=== PATIENT | female | born 1940 | race Caucasian/White ===

== ENCOUNTER 2018-05-29 09:23 | Inpatient (IN) ==
[2018-05-23 14:07] LABS: Basophils # (Auto) 0 K/mcL (0.0-0.3); Basophils % (Auto) 0.5 % (0.0-2.0); Eosinophils # (Auto) 0.2 K/mcL (0.0-0.7); Eosinophils % (Auto) 2.7 % (0.0-7.0); Granulocytes % (Auto) 69.2 % (38.0-78.0); Lymphocytes % (Auto) 16.2 % (15.5-49.0); Mean Cell Volume 86.6 fL (80.0-100.0); Mean Corpuscular HGB Conc 32.8 g/dL (31.0-36.0); Mean Corpuscular Hemoglobin 28.4 pg (26.0-34.0); Monocytes # (Auto) 0.7 K/mcL (0.1-0.9); Monocytes % (Auto) 11.4 % (1.0-12.0); Platelet Count 185 K/mcL (140-440); RBC 4.63 M/mcL (4.00-5.20); Red Cell Distribution Width 14.3 % (11.5-14.5)
[2018-05-23 14:14] LABS: Appearance,Urine HAZY; Bilirubin,Urine NEG (NEG); Color,Urine YELLOW; Glucose,Urine (UA) NEGATIVE (NEG); Leukocyte Esterase,Urine NEG /uL (NEG); Protein,Urine NEG (NEG); Specific Gravity,Urine 1.021 (1.000-1.035); Urine Blood NEG mg/dL (<0.03); Urobilinogen,Urine NEG (NEG)
[2018-05-23 14:15] LABS: Blood Urea Nitrogen 31 mg/dl (8-23)
[~2018-05-29 09:23] MED LIST: 0.9 % SODIUM CHLORIDE 9 ML, KETOROLAC 30 MG, ROPIVACAINE HCL/PF 49.5 ML, EPINEPHrine 0.... IJ SCH; ACETAMINOPHEN 500 MG TABLET PO SCH; CELECOXIB 200 MG CAPSULE PO SCH; PREGABALIN 75 MG CAPSULE PO SCH; ceFAZolin 1 GM VIAL IV SCH; oxyCODONE 10 MG TAB.ER.12H PO SCH
[2018-05-29] MEDS ORDERED: MIDAZOLAM 2 MG/2 ML VIAL IV ONE (10:40)
[2018-05-29] MEDS ORDERED: KETAMINE 100 MG/ML ML IV ONE (10:40)
[2018-05-29] MEDS ORDERED: PHENYLEPHRINE 10 MG/ML VIAL IV ONE (10:40)
[2018-05-29] MEDS ORDERED: LIDOCAINE HCL/PF 100 MG/5 ML SYRINGE IV ONE (10:40)
[2018-05-29] MEDS ORDERED: GLYCOPYRROLATE 0.2 MG/ML VIAL IV ONE (10:40)
[2018-05-29] MEDS ORDERED: ONDANSETRON 4 MG/2 ML VIAL IV ONE (10:40)
[2018-05-29] MEDS ORDERED: TRANEXAMIC ACID 1,000 MG/10 ML VIAL IV ONE (10:40)
[2018-05-29] MEDS ORDERED: PROPOFOL 200 MG/20 ML VIAL IV ONE (10:40)
[2018-05-29] MEDS ORDERED: GENTAMICIN SULFATE 800 MG/20 ML VIAL IR ONE (11:10)
--- NOTE | 2018-05-29 11:55 | XRay Report ---
CLINICAL INFORMATION: LEFT TOTAL HIP ARTHROPLASTY-POSTERIOR COMPARISON: None. FINDINGS: Intraoperative film shows right femoral stem template in anatomic alignment and the right acetabular prosthesis also in near-anatomic alignment No osseous abnormality IMPRESSION: Interpreted and Authenticated by: Familia Mejía 05/29/18
[2018-05-29] MEDS ORDERED: fentaNYL 100 MCG/2 ML VIAL IV PRN (12:02)
[2018-05-29] MEDS ORDERED: ONDANSETRON 4 MG/2 ML VIAL IV PRN ×2 (12:02→12:11)
[2018-05-29] MEDS ORDERED: IPRATROPIUM/ALBUTEROL 3 ML AMPUL.NEB NEB PRN (12:02)
[2018-05-29] MEDS ORDERED: MEPERIDINE 25 MG/ML SYRINGE IV PRN (12:02)
[2018-05-29] MEDS ORDERED: METHOCARBAMOL 1,000 MG/10 ML VIAL IV PRN (12:02)
[2018-05-29] MEDS ORDERED: ACETAMINOPHEN 325 MG TABLET PO PRN (12:11)
[2018-05-29] MEDS ORDERED: FLEETS ADULT ENEMA PR PRN (12:11)
[2018-05-29] MEDS ORDERED: BISACODYL 10 MG SUPP.RECT PR PRN (12:11)
[2018-05-29] MEDS ORDERED: BENZOCAINE/MENTHOL 1 LOZENGE PO PRN (12:11)
[2018-05-29] MEDS ORDERED: POLYETHYLENE GLYCOL 3350 17 GM PACKET PO PRN (12:11)
[2018-05-29] MEDS ORDERED: HYDROmorphone 2 MG/ML VIAL IV PRN (12:11)
[2018-05-29] MEDS ORDERED: MAGNESIUM HYDROXIDE 30 ML ORAL.SUSP PO PRN (12:11)
[2018-05-29] MEDS ORDERED: TRANEXAMIC ACID 1,000 MG/10 ML VIAL IV SCH (12:11)
[2018-05-29] MEDS ORDERED: KETOROLAC 15 MG/ML VIAL IV PRN (12:11)
--- NOTE | 2018-05-29 12:11 | Brief Operative Note ---
Date of procedure: 05/29/18 Pre-op diagnosis: left hip djd Post-op diagnosis: same Procedure: left total hip cemented Grafts/Implants: Yes Anesthesia: GETA Complications Description: 05/29/18 12:10 [email or web address] Surgeon: aRj Trujillo Enrollment Management Vice President: Luis Alberto Perez Estimated blood loss (cc): 50 Specimens Removed/Pathology: none sent Condition: stable Disposition: PACU
[2018-05-29] MEDS ORDERED: LACTATED RINGERS 1,000 ML IV SCH (12:15)
--- NOTE | 2018-05-29 12:28 | Operative Note ---
DATE OF OPERATION: 05/29/2018 PREOPERATIVE DIAGNOSIS: Left hip degenerative arthritis. POSTOPERATIVE DIAGNOSIS: Left hip degenerative arthritis. PROCEDURE: Left total hip arthroplasty. SURGEON: Raj Trujillo MD DISTRIBUTION TRANSFORMER ASSEMBLER: Luis Alberto Perez PA-C. ANESTHESIA: General LMA anesthesia. COMPLICATIONS: None. ESTIMATED BLOOD LOSS: About 100 mL DESCRIPTION OF PROCEDURE: The patient was brought to the operating room. A timeout was performed, we confirmed the operative site and a superior approach was performed. We made an incision superiorly and dissected to the fascial layer. This was incised to the IT band insertion. Once this was done, we then dislocated the hip and released the superior capsule. We made our neck cut at 32 mm. Once done, we then subluxed the hip anteriorly, reamed up to a size 52 cup, implanted a 52 cup with a 35 mm screw. A non-hooded liner was placed. The cup was placed at 40 degrees of inclination and 20 degrees of anteversion. Once done, we then prepared the femur. This was broached up to the size 5. An x-ray was taken intraoperatively that showed fairly equal leg lengths, with the cup well-positioned. At this point, we cemented into place a size 5 stem with 15 degrees of anteversion. Once done, we then trialed the 2.5 and 5 head. The 5 was the most stable. We irrigated thoroughly so any debris was removed. We then closed the fascial layer with #1 Stratafix and #1 Stratafix was used through for the fatty layer and then adhesive closure. Sterile bandage was applied. The patient tolerated this well without complication. RBH:[email or web address] Job ID: [id number] Doc ID: [id number] Raj Trujillo MD
--- NOTE | 2018-05-29 13:05 | XRay Report ---
CLINICAL INFORMATION: Post-Op Total Hip COMPARISON: None. FINDINGS: Left total hip prostheses is in near-anatomic alignment. There is moderate degenerative change in both SI and right hip joint as previously seen. Soft tissue swelling over the surgical site seen as expected IMPRESSION: Left total hip prosthesis in near-anatomic alignment. Interpreted and Authenticated by: Familia Mejía 05/29/18
[2018-05-29] MEDS: 0.45 % SODIUM CHLORIDE 1,000 ML IV SCH (13:20)
[2018-05-29] MEDS: 0.9 % SODIUM CHLORIDE 10 ML SYRINGE IV SCH ×2 (15:09→22:34)
[2018-05-29] MEDS: HYDROcodone/APAP 10/325MG TABLET PO PRN (17:54)
[2018-05-29] MEDS: ceFAZolin 1 GM VIAL IV SCH (17:55)
[2018-05-29] MEDS ORDERED: TEMAZEPAM 15 MG CAPSULE PO PRN (21:00)
[2018-05-29] MEDS: SIMVASTATIN 10 MG TABLET PO SCH (21:35)
[2018-05-29] MEDS: SENNOSIDES 1 TABLET PO SCH (21:35)
[2018-05-29] MEDS: ASPIRIN 325 MG ENTERIC COATED TABLET PO SCH (21:35)
[2018-05-29] MEDS: DOCUSATE SODIUM 100 MG CAPSULE PO SCH (21:35)
[2018-05-29] MEDS: LATANOPROST OPHTH DROPS 2.5ML BOTTLE OU SCH (21:38)
[2018-05-30] MEDS: 0.45 % SODIUM CHLORIDE 1,000 ML IV SCH ×3 (00:09→21:26)
[2018-05-30] MEDS: ceFAZolin 1 GM VIAL IV SCH (02:52)
[2018-05-30] MEDS: 0.9 % SODIUM CHLORIDE 10 ML SYRINGE IV SCH ×2 (05:52→14:33)
[2018-05-30] MEDS: HYDROcodone/APAP 10/325MG TABLET PO PRN ×4 (06:58→21:28)
--- NOTE | 2018-05-30 07:42 | Orthopedic Progress Note ---
Subjective Patient information: Note initiated : 05/30/18 at 7:41 am Service Date, if different from initiated Date: [] Patient: Gwyn Thompson 78 y/o F admitted on 05/29/18 for Left Total Hip Arthroplasty. Chief Complaint: [Pt is stable this morning on post operative day 1 without any significant concerns or complaints. Patients vital signs have remained stable. Patients dressing is dry and is grossly intact from a neurovascular and motor standpoint. Patients 10 point ROS is otherwise negative. ] Objective Vital signs: Vital Signs Temp Pulse Resp BP Pulse Ox 05/30/18 06:49 97.2 F 77 16 120/58 94 05/30/18 05:00 92 05/30/18 03:54 97.7 F 84 18 109/67 96 05/30/18 03:00 90 05/30/18 01:00 20 90 05/29/18 23:48 97.6 F 75 18 99/60 93 05/29/18 23:00 92 05/29/18 21:00 90 05/29/18 20:00 97.8 F 78 20 105/67 95 05/29/18 19:00 95 05/29/18 17:00 96 05/29/18 16:11 78 05/29/18 15:00 96 05/29/18 14:51 113/75 94 05/29/18 14:21 102/67 94 05/29/18 13:51 113/76 96 05/29/18 13:36 122/78 94 05/29/18 13:21 113/63 94 05/29/18 13:17 83 05/29/18 13:06 113/75 95 05/29/18 13:05 96 05/29/18 13:00 98.1 F 85 16 115/60 98 05/29/18 12:56 98 F 81 17 110/54 99 05/29/18 12:46 98 F 81 17 110/54 99 05/29/18 12:36 98.1 F 85 13 105/61 98 05/29/18 12:31 97.9 F 22 109/66 99 05/29/18 12:26 98 F 82 12 102/48 99 05/29/18 12:21 98.7 F 80 12 110/50 99 05/29/18 12:16 98.4 F 94 H 14 122/58 97 05/29/18 09:43 97.7 F 20 128/76 96 05/29/18 09:23 97.7 F 20 128/76 96 Intake and Output 05/29/18 05/30/18 05/30/18 21:59 05:59 13:59 Intake Total 840 / 840 1425 / 1425 Output Total 200 / 200 250 / 250 Balance 840 / 840 1225 / 1225 -250 / -250 Intake: IV 1000 / 1000 Sodium Chloride 0.45% 1,000 ml 1000 / 1000 @ 100 mls/hr IV .Q10H JOANNE Rx#: [id number] Oral 840 / 840 425 / 425 Output: Void Amount 200 / 200 250 / 250 Other: Meal Dinner Percent of Meal Consumed 75% Feeding Ability Independent Urine Appearance Clear Clear Urine Color Dark Velma Bright Yellow Urine Odor Strong # Voids 1 Weight 207 lb Intake & Output: Intake & Output 05/29/18 05/30/18 05/30/18 21:59 05:59 13:59 Intake Total 840 / 840 1425 / 1425 Output Total 200 / 200 250 / 250 Balance 840 / 840 1225 / 1225 -250 / -250 Weight 207 lb Intake: IV 1000 / 1000 Sodium Chloride 0.45% 1,000 ml 1000 / 1000 @ 100 mls/hr IV .Q10H JOANNE Rx#: [id number] Oral 840 / 840 425 / 425 Output: Void Amount 200 / 200 250 / 250 Other: Meal Dinner Percent of Meal Consumed 75% Feeding Ability Independent Urine Appearance Clear Clear Urine Color Dark Velma Bright Yellow Urine Odor Strong # Voids 1 Incision: Yes healing Incision clean and dry: Yes Dressing: Yes clean Weight bearing status: full Neurological exam IM: Yes motor sensory intact, Yes neurovascular intact Extremities exam IM: Yes Foot pink and warm, Yes neurovascular intact - Labs CBC & BMP: 05/30/18 05:03 05/23/18 11:57 Labs: Orthopedic Labs 05/23/18 11:57 PT 13.3 INR 1.0 APTT 35 05/30/18 05/23/18 05:03 11:58 Hgb 13.1 Hct 33.7 L 40.1 Assessment and Plan (1) Hx of total hip arthroplasty The patient has been educated regarding dressing care, Physical Therapy recommendations, home exercises, restrictions, and follow up appointments. The patient has had all necessary DME prescribed. The patient has remained relatively stable during their hospital course. Leave Dermabond patch intact until followup Status: Acute
--- NOTE | 2018-05-30 07:44 | Discharge Summary ---
Ortho Discharge - [facility] - Patient Instructions Diet: Regular Diet Activity: activity as tolerated, weight bearing as tolerated Total Hip Protocol: Follow activity instructions as provided by Physical Therapy. Dressing Care: May shower in 2 days - Problem Maintenance (1) Hx of total hip arthroplasty Status: Acute - Follow Up Plan Follow Up Appointments: Luis Alberto Perez PA-C [Physician Box Toe Flanger [employer]] - 06/13/18 9:30 am Disposition: Xfer SNF Prognosis: Good Rehab Potential: Good I certify that the patient requires SNF services: No Overall status at discharge: patient is progressing back to baseline - Orders For Discharge Prescriptions: Aspirin [Ecotrin] 325 mg PO BID #60 tab.ec Docusate Sodium [Colace] 100 mg PO BID #60 cap HYDROcodone/APAP 10/325MG [[place] 10-325Mg] 1 - 2 tab PO Q4HP PRN #75 tab PRN Reason: Pain Level 3-6
[2018-05-30] MEDS: ASPIRIN 325 MG ENTERIC COATED TABLET PO SCH ×2 (08:57→21:07)
[2018-05-30] MEDS: DOCUSATE SODIUM 100 MG CAPSULE PO SCH ×2 (08:58→21:06)
[2018-05-30] MEDS: HYDROCHLOROTHIAZIDE 25 MG TABLET PO SCH (09:01)
[2018-05-30] MEDS: LISINOPRIL 20 MG TABLET PO SCH (09:01)
[2018-05-30] MEDS: SENNOSIDES 1 TABLET PO SCH (21:06)
[2018-05-30] MEDS: SIMVASTATIN 10 MG TABLET PO SCH (21:06)
[2018-05-30] MEDS: LATANOPROST OPHTH DROPS 2.5ML BOTTLE OU SCH (21:27)
[2018-05-31] MEDS: 0.9 % SODIUM CHLORIDE 10 ML SYRINGE IV SCH ×4 (03:44→20:18)
[2018-05-31] MEDS: 0.45 % SODIUM CHLORIDE 1,000 ML IV SCH ×2 (04:33→14:15)
[2018-05-31] MEDS: DOCUSATE SODIUM 100 MG CAPSULE PO SCH ×2 (07:17→20:17)
[2018-05-31] MEDS: LISINOPRIL 20 MG TABLET PO SCH (07:18)
[2018-05-31] MEDS: ASPIRIN 325 MG ENTERIC COATED TABLET PO SCH ×2 (07:18→20:17)
[2018-05-31] MEDS: HYDROcodone/APAP 10/325MG TABLET PO PRN (07:18)
[2018-05-31] MEDS: HYDROCHLOROTHIAZIDE 25 MG TABLET PO SCH (07:18)
--- NOTE | 2018-05-31 18:06 | Orthopedic Progress Note ---
Subjective Patient information: Note initiated : 05/31/18 at 6:05 pm Service Date, if different from initiated Date: [] Patient: Gwyn Thompson 78 y/o F admitted on 05/29/18 for Left Total Hip Arthroplasty. Chief Complaint: [less pain and walking 100 feet and no nausea or vomiting] Objective Vital signs: Vital Signs Temp Pulse Resp BP Pulse Ox 05/31/18 17:00 93 05/31/18 16:19 99.1 F H 20 96/55 90 05/31/18 15:00 93 05/31/18 13:00 96 05/31/18 12:00 98.4 F 20 94/62 91 05/31/18 11:00 98 05/31/18 09:00 97 05/31/18 07:35 98.4 F 20 115/61 92 05/31/18 04:33 92 05/31/18 03:18 98.2 F 80 18 124/76 92 05/31/18 00:27 98.3 F 75 16 106/68 93 05/31/18 00:23 90 05/30/18 21:03 90 05/30/18 19:00 90 Intake and Output 05/31/18 05/31/18 05/31/18 05:59 13:59 21:59 Intake Total 130 / 130 400 / 400 Output Total 150 / 150 200 / 200 1450 / 1450 Balance -150 / -150 -70 / -70 -1050 / -1050 Intake: Oral 130 / 130 400 / 400 Output: Void Amount 150 / 150 200 / 200 1450 / 1450 # of times incontinent of urine 0 / 0 Other: Meal Breakfast Lunch Percent of Meal Consumed 100% 100% Feeding Ability Independent Urine Appearance Clear Clear Urine Color Straw Bright Yellow Urine Odor Normal Normal Stool Size Moderate Stool Color Brown # Voids 1 1 # Bowel Movements 2 Intake & Output: Intake & Output 05/31/18 05/31/18 05/31/18 05:59 13:59 21:59 Intake Total 130 / 130 400 / 400 Output Total 150 / 150 200 / 200 1450 / 1450 Balance -150 / -150 -70 / -70 -1050 / -1050 Intake: Oral 130 / 130 400 / 400 Output: Void Amount 150 / 150 200 / 200 1450 / 1450 # of times incontinent of urine 0 / 0 Other: Meal Breakfast Lunch Percent of Meal Consumed 100% 100% Feeding Ability Independent Urine Appearance Clear Clear Urine Color Straw Bright Yellow Urine Odor Normal Normal Stool Size Moderate Stool Color Brown # Voids 1 1 # Bowel Movements 2 Incision: Yes healing Incision clean and dry: Yes Dressing: Yes clean Weight bearing status: full Neurological exam IM: Yes alert, Yes oriented X3, Yes neurovascular intact - Periperhal Pulses Peripheral pulses: 1+: dorsalis pedis (L), dorsalis pedis (R), posterior tibialis (L), posterior tibialis (R) - Labs CBC & BMP: 05/30/18 05:03 05/23/18 11:57 Labs: Orthopedic Labs 05/23/18 11:57 PT 13.3 INR 1.0 APTT 35 05/30/18 05/23/18 05:03 11:58 Hgb 13.1 Hct 33.7 L 40.1
--- NOTE | 2018-05-31 18:08 | Discharge Summary ---
Ortho Discharge - [facility] - Patient Instructions Diet: Regular Diet (discharge june 01 2018 to snf) Activity: activity as tolerated, weight bearing as tolerated Total Hip Protocol: Follow activity instructions as provided by Physical Therapy. Patient Education: Hydrocodone/Acetaminophen (By mouth), Aspirin (By mouth), Laxative, Stool Softeners (By mouth), Total Hip Replacement (DC) - Follow Up Plan Follow Up Appointments: Luis Alberto Perez PA-C [Physician Thread Cutter Tender] - 06/13/18 9:30 am Disposition: Xfer SNF Prognosis: Good Rehab Potential: Good I certify that the patient requires SNF services: No - Orders For Discharge Prescriptions: Aspirin [Ecotrin] 325 mg PO BID #60 tab.ec Docusate Sodium [Colace] 100 mg PO BID #60 cap HYDROcodone/APAP 10/325MG [[place] 10-325Mg] 1 - 2 tab PO Q4HP PRN #75 tab PRN Reason: Pain Level 3-6 Additional Discharge Orders: Physical Therapy at Discharge - [facility] Location: None Selected Toilet Riser Discharge Order Location: None Selected Walker Location: None Selected
[2018-05-31] MEDS: SENNOSIDES 1 TABLET PO SCH (20:17)
[2018-05-31] MEDS: SIMVASTATIN 10 MG TABLET PO SCH (20:18)
[2018-05-31] MEDS: LATANOPROST OPHTH DROPS 2.5ML BOTTLE OU SCH (20:18)
[2018-06-01] MEDS: 0.45 % SODIUM CHLORIDE 1,000 ML IV SCH (00:01)
[2018-06-01] MEDS: HYDROcodone/APAP 10/325MG TABLET PO PRN ×2 (02:16→09:36)
[2018-06-01] MEDS: 0.9 % SODIUM CHLORIDE 10 ML SYRINGE IV SCH (06:04)
[2018-06-01] MEDS: LISINOPRIL 20 MG TABLET PO SCH (08:05)
[2018-06-01] MEDS: ASPIRIN 325 MG ENTERIC COATED TABLET PO SCH (08:06)
[2018-06-01] MEDS: HYDROCHLOROTHIAZIDE 25 MG TABLET PO SCH (08:06)
[2018-06-01] MEDS: DOCUSATE SODIUM 100 MG CAPSULE PO SCH (08:06)
== END 2018-06-01 09:58 | DRG 470 ==
LOC: MEDSUR 09:23
PROVIDERS: ADMIT Orthopaedic Surgery; ATTEND Orthopaedic Surgery
CPT/HCPCS: 62322; 73501; 73502; 97161; 97166; C1713; C1776; J0690; J1580; J2001; J2250; J2370; J2405; J7120